=== PATIENT | male | born 1970 | race Caucasian/White ===

== ENCOUNTER 2022-06-11 14:01 | Emergency (ER) | payer OTHER ==
[~2022-06-11] VITALS: Ht 176.5 cm; Wt 106.6 kg
[2022-06-11] MEDS ORDERED: GLUCOSAMINE HC500 MG (14:20)
[2022-06-11] MEDS ORDERED: FLOVENT HFA12 GM (14:20)
[2022-06-11] MEDS ORDERED: ZYRTEC10 M3 (14:20)
[2022-06-11] MEDS ORDERED: RITALIN5 M1 (14:20)
[2022-06-11] MEDS ORDERED: CLEOCIN HCL300 MG PO (16:13)
== END 2022-06-11 16:28 | disposition home or self-care (01) ==
LOC: ER 14:01
DX: L50.9 Urticaria, unspecified (principal); J45.909 Unspecified asthma, uncomplicated; Z88.2 Allergy status to sulfonamides; L60.0 Ingrowing nail